=== PATIENT | female | born 1930 | race Caucasian/White ===

== ENCOUNTER → 2019-10-04 | Outpatient (CLI) | payer MEDICARE, OTHER ==
--- NOTE | 2019-10-06 13:04 | Diagnostic Imaging Report ---
INDICATION: Routine screening. COMPARISON: Comparison is made with prior mammograms from 09/09/2018 and 08/25/2017. TECHNIQUE: 2-D and 3-D bilateral screening mammography was performed. The current study was also evaluated with a Computer Aided Detection (CAD) system. 3-D tomosynthesis was also performed and reviewed. FINDINGS: Both breasts remain heterogeneously dense, limiting the sensitivity of mammography. There is a density in the medial aspect of the right breast posterior depth, which appears more irregular on today's study. There was a cyst at this location on study from 2018. The left breast is unremarkable. There are scattered benign calcifications. IMPRESSION: Right breast density in the medial aspect posterior depth appears more irregular on today's study. Additional views and ultrasound are recommended for further evaluation. ACR BI-RADS Category 0: Incomplete. (Needs additional imaging evaluation). Result letter will be mailed to the patient. Note: At least 10% of breast cancer is not imaged by mammography. Dictated by: Dictated on workstation # [id number]
== END ==
LOC: RAD 10:05
PROVIDERS: ATTEND Pediatrics
DX: Z12.31 Encounter for screening mammogram for malignant neoplasm of breast (principal); R92.8 Other abnormal and inconclusive findings on diagnostic imaging of breast
CPT/HCPCS: 77067

== ENCOUNTER → 2019-10-13 | Outpatient (CLI) | payer MEDICARE, OTHER ==
--- NOTE | 2019-10-13 16:26 | Diagnostic Imaging Report ---
INDICATION: Right breast density. COMPARISON: Correlation is made with diagnostic mammogram earlier the same day and screening mammogram from 10/04/2019. FINDINGS: Sonographic interrogation of the inner right breast was performed. At the 2 o'clock location, 8 cm from the nipple, there is an irregular hypoechoic solid-appearing nodule measuring 9 mm x 5 mm x 6 cm. This likely accounts for the density noted mammographically. There is some internal vascularity. No other abnormalities are detected. IMPRESSION: Irregular hypoechoic subcentimeter nodule at the 2 o'clock location of the right breast, 8 cm from the nipple. This is concerning for small breast neoplasm. Tissue sampling is recommended. This would be amenable to ultrasound-guided core biopsy. ACR BI-RADS Category 4: Suspicious abnormality. Result letter will be mailed to the patient. Note: At least 10% of breast cancer is not imaged by mammography. Dictated by: Dictated on workstation # [id number]
--- NOTE | 2019-10-13 18:43 | Diagnostic Imaging Report ---
INDICATION: Right breast density. Patient presents for additional views. Correlation is made with recent screening study from 10/04/2019 and 09/09/2018. Unilateral right 2-D and 3-D diagnostic mammography was performed. This included spot compression CC and ML views as well as conventional 90-degree lateral view. The current study was also evaluated with a Computer Aided Detection (CAD) system. 3-D tomosynthesis was also performed and reviewed. FINDINGS: There is a persistent irregular density in the medial right breast approximately 10 cm from the nipple. This is at the 2-3 o'clock location. No suspicious microcalcifications are seen. IMPRESSION: Irregular density in medial right breast posterior depth approximately 10 cm from the nipple. Further evaluation with ultrasound is recommended and will be performed today. ACR BI-RADS Category 0: Incomplete. (Needs additional imaging evaluation). Result letter will be mailed to the patient. Note: At least 10% of breast cancer is not imaged by mammography. Dictated by: Dictated on workstation # [id number]
== END ==
LOC: RAD 13:11
PROVIDERS: ATTEND Pediatrics
DX: N63.12 Unspecified lump in the right breast, upper inner quadrant (principal); R92.8 Other abnormal and inconclusive findings on diagnostic imaging of breast

== ENCOUNTER → 2019-10-20 | Outpatient (CLI) | payer MEDICARE ==
[~2019-10-20] VITALS: Ht 167.7 cm; Wt 74.1 kg
[~2019-10-20] MED LIST: LIDOCAINE 1% INJ 20 ML 20 ML VIAL INJ ONE
--- NOTE | 2019-10-20 14:07 | Diagnostic Imaging Report ---
INDICATION: Right breast nodule. Patient present for biopsy. Patient brought to the procedure room and placed in the bed in the supine position. Ultrasound imaging of the right breast was performed to evaluate appropriate entry site. The right breast was then prepped and draped in usual sterile fashion. A small amount of 1% lidocaine was utilized for local anesthesia. A total of 5 passes were made into the hypoechoic nodule at the 2 o'clock location of the right breast, 8 cm from the nipple utilizing 14-gauge achieve needle. Core biopsies were obtained. A marker clip was then deployed. Hemostasis was obtained using manual compression. The patient tolerated the procedure well and was sent to mammography for post procedure mammogram. IMPRESSION: Ultrasound-guided core biopsy of the hypoechoic nodule at the 2 o'clock location of the right breast, 8 cm from the nipple. Pathology results are currently pending. Dictated by: Dictated on workstation # [id number]
--- NOTE | 2019-10-20 15:35 | Diagnostic Imaging Report ---
INDICATION: Right breast biopsy with ultrasound. Study is performed post biopsy and clip placement. 2-D CC and MLO mammography was performed postbiopsy. Images demonstrate a clip in the inner aspect of the right breast slightly upper aspect at posterior depth, just posterior to the previously noted spiculated density. IMPRESSION: Clip placement right breast, status post biopsy. Dictated by: Dictated on workstation # [id number]
== END ==
LOC: RAD 12:14
PROVIDERS: ATTEND Pediatrics
DX: C50.411 Malignant neoplasm of upper-outer quadrant of right female breast (principal); Z98.82 Breast implant status; Z98.890 Other specified postprocedural states
CPT/HCPCS: 19083

== ENCOUNTER 2019-11-24 05:38 | Outpatient (CLI) | payer MEDICARE ==
[~2019-11-24] VITALS: Ht 162.6 cm; Wt 75.5 kg
[2019-11-24] MEDS ORDERED: ANAS1TAB7 PO (11:09)
[2019-11-24] MEDS ORDERED: ASPI-586 PO (11:29)
[2019-11-24] MEDS ORDERED: MULT-1021 PO (11:29)
[2019-11-24] MEDS ORDERED: CYAN100088 PO (11:29)
[2019-11-24] MEDS ORDERED: SPIR25TA5 PO (11:29)
== END 2019-11-24 11:37 | disposition home or self-care (01) ==
LOC: PREOP 05:38
PROVIDERS: ATTEND Surgery
DX: Z01.818 Encounter for other preprocedural examination (principal)

== ENCOUNTER 2019-12-09 09:55 | Outpatient (RCR) | payer MEDICARE ==
[~2019-12-09 09:55] MED LIST changes: +ACHD5005 PO; +ANAS1TAB7 PO; +ASPI-586 PO; +CYAN100088 PO; -LIDOCAINE 1% INJ 20 ML 20 ML VIAL INJ ONE; +MULT-1021 PO; +SPIR25TA5 PO
== END 2020-02-02 | disposition home or self-care (01) ==
LOC: ONC 09:55
PROVIDERS: ATTEND Internal Medicine Hematology & Oncology
DX: C50.411 Malignant neoplasm of upper-outer quadrant of right female breast (principal); Z98.82 Breast implant status; Z98.890 Other specified postprocedural states
CPT/HCPCS: 99213; 99214

== ENCOUNTER 2020-03-23 12:49 | Outpatient (RCR) | payer MEDICARE ==
[2020-03-23 13:05] LABS: BASOPHILS % (AUTO) 1 % (0-10); EOSINOPHILS # (AUTO) 0.2 10^3/uL (0.0-0.3); EOSINOPHILS % (AUTO) 6 % (0-10); HEMATOCRIT 33 % (35-52); HEMOGLOBIN 10.6 G/DL (11.5-16.0); LYMPHOCYTES # (AUTO) 0.9 X 10^3 (1.0-4.0); LYMPHOCYTES % (AUTO) 23 % (12-44); MEAN CORPUSCULAR HEMOGLOBIN 30 PG (25-34); MEAN CORPUSCULAR HGB CONC 33 G/DL (32-36); MEAN CORPUSCULAR VOLUME 92 FL (80-99); MEAN PLATELET VOLUME 11.9 FL (7.4-10.4); MONOCYTES % (AUTO) 26 % (0-12); NEUTROPHILS # (AUTO) 1.8 X 10^3 (1.8-7.8); NEUTROPHILS % (AUTO) 45 % (42-75); PLATELET COUNT 158 10^3/uL (130-400); WHITE BLOOD COUNT 4.1 10^3/uL (4.3-11.0)
[2020-03-23 13:30] LABS: ALBUMIN 4.1 GM/DL (3.2-4.5); BILIRUBIN,TOTAL 0.7 MG/DL (0.1-1.0); CALCIUM 8.7 MG/DL (8.5-10.1); CREATININE SERUM 0.89 MG/DL (0.60-1.30); POTASSIUM 3.8 MMOL/L (3.6-5.0); TOTAL PROTEIN 7.1 GM/DL (6.4-8.2)
== END 2020-06-21 | disposition home or self-care (01) ==
LOC: ONC 12:49
PROVIDERS: ATTEND Internal Medicine Hematology & Oncology
DX: C50.211 Malignant neoplasm of upper-inner quadrant of right female breast (principal); D63.0 Anemia in neoplastic disease; D72.819 Decreased white blood cell count, unspecified; E78.5 Hyperlipidemia, unspecified; M19.90 Unspecified osteoarthritis, unspecified site; Z79.899 Other long term (current) drug therapy; Z98.890 Other specified postprocedural states; Z90.49 Acquired absence of other specified parts of digestive tract; Z96.659 Presence of unspecified artificial knee joint; Z90.710 Acquired absence of both cervix and uterus
CPT/HCPCS: 80053; 85025; G0463; 99213

== ENCOUNTER → 2020-12-12 | Outpatient (CLI) | payer MEDICARE ==
[2020-12-12 14:28] LABS: BASOPHILS # (AUTO) 0.1 10^3/uL (0.0-0.1); BASOPHILS % (AUTO) 3 % (0-10); EOSINOPHILS # (AUTO) 0.4 10^3/uL (0.0-0.3); EOSINOPHILS % (AUTO) 9 % (0-10); HEMATOCRIT 33 % (35-52); HEMOGLOBIN 10.5 g/dL (11.5-16.0); LYMPHOCYTES # (AUTO) 0.7 X 10^3 (1.0-4.0); LYMPHOCYTES % (AUTO) 17 % (12-44); MEAN CORPUSCULAR HEMOGLOBIN 30 pg (25-34); MEAN CORPUSCULAR HGB CONC 32 g/dL (32-36); MEAN CORPUSCULAR VOLUME 92 fL (80-99); MEAN PLATELET VOLUME 11.5 fL (9.0-12.2); MONOCYTES # (AUTO) 1.2 X 10^3 (0.0-1.0); MONOCYTES % (AUTO) 31 % (0-12); NEUTROPHILS # (AUTO) 1.6 X 10^3 (1.8-7.8); NEUTROPHILS % (AUTO) 40 % (42-75); PLATELET COUNT 154 10^3/uL (130-400)
[2020-12-12 14:47] LABS: ALBUMIN 4.1 GM/DL (3.2-4.5); BILIRUBIN,TOTAL 0.7 MG/DL (0.1-1.0); CALCIUM 8.6 MG/DL (8.5-10.1); CREATININE SERUM 1.34 MG/DL (0.60-1.30); POTASSIUM 3.9 MMOL/L (3.6-5.0); TOTAL PROTEIN 7.2 GM/DL (6.4-8.2)
== END ==
LOC: ONC 14:01
PROVIDERS: ATTEND Internal Medicine Hematology & Oncology
DX: C50.211 Malignant neoplasm of upper-inner quadrant of right female breast (principal); D63.1 Anemia in chronic kidney disease; N18.9 Chronic kidney disease, unspecified; D72.819 Decreased white blood cell count, unspecified; Z90.11 Acquired absence of right breast and nipple
CPT/HCPCS: 80053; 85025; G0463; 99213

== ENCOUNTER → 2021-06-19 | Outpatient (CLI) | payer MEDICARE ==
[2021-06-19 13:22] LABS: BASOPHILS % (AUTO) 1 % (0-10); EOSINOPHILS # (AUTO) 0.4 10^3/uL (0.0-0.3); EOSINOPHILS % (AUTO) 9 % (0-10); HEMATOCRIT 34 % (35-52); HEMOGLOBIN 10.7 g/dL (11.5-16.0); LYMPHOCYTES # (AUTO) 0.8 10^3/uL (1.0-4.0); LYMPHOCYTES % (AUTO) 19 % (12-44); MEAN CORPUSCULAR HEMOGLOBIN 30 pg (25-34); MEAN CORPUSCULAR HGB CONC 32 g/dL (32-36); MEAN CORPUSCULAR VOLUME 95 fL (80-99); MEAN PLATELET VOLUME 11.7 fL (9.0-12.2); MONOCYTES # (AUTO) 1.2 10^3/uL (0.0-1.0); MONOCYTES % (AUTO) 28 % (0-12); NEUTROPHILS # (AUTO) 1.8 10^3/uL (1.8-7.8); NEUTROPHILS % (AUTO) 43 % (42-75); PLATELET COUNT 154 10^3/uL (130-400); WHITE BLOOD COUNT 4.2 10^3/uL (4.3-11.0)
[2021-06-19 13:45] LABS: ALBUMIN 4.1 GM/DL (3.2-4.5); BILIRUBIN,TOTAL 0.8 MG/DL (0.1-1.0); CALCIUM 9.3 MG/DL (8.5-10.1); CREATININE SERUM 1.08 MG/DL (0.60-1.30); POTASSIUM 3.9 MMOL/L (3.6-5.0); TOTAL PROTEIN 7.1 GM/DL (6.4-8.2)
== END ==
LOC: ONC 13:10
PROVIDERS: ATTEND Internal Medicine Hematology & Oncology
DX: C50.211 Malignant neoplasm of upper-inner quadrant of right female breast (principal); D72.819 Decreased white blood cell count, unspecified; D64.89 Other specified anemias; Z90.11 Acquired absence of right breast and nipple
CPT/HCPCS: 80053; 85025; G0463; 99213

== ENCOUNTER → 2021-12-24 | Outpatient (CLI) | payer MEDICARE ==
[2021-12-24 11:01] LABS: BASOPHILS % (AUTO) 1 % (0-10); EOSINOPHILS # (AUTO) 0.4 10^3/uL (0.0-0.3); EOSINOPHILS % (AUTO) 7 % (0-10); HEMATOCRIT 32 % (35-52); HEMOGLOBIN 10.2 g/dL (11.5-16.0); LYMPHOCYTES # (AUTO) 0.8 10^3/uL (1.0-4.0); LYMPHOCYTES % (AUTO) 14 % (12-44); MEAN CORPUSCULAR HEMOGLOBIN 30 pg (25-34); MEAN CORPUSCULAR HGB CONC 32 g/dL (32-36); MEAN CORPUSCULAR VOLUME 94 fL (80-99); MEAN PLATELET VOLUME 12.4 fL (9.0-12.2); MONOCYTES # (AUTO) 1.6 10^3/uL (0.0-1.0); MONOCYTES % (AUTO) 27 % (0-12); NEUTROPHILS # (AUTO) 3.1 10^3/uL (1.8-7.8); NEUTROPHILS % (AUTO) 51 % (42-75); PLATELET COUNT 170 10^3/uL (130-400)
[2021-12-24 11:18] LABS: BILIRUBIN,TOTAL 0.6 MG/DL (0.1-1.0); CALCIUM 8.8 MG/DL (8.5-10.1); TOTAL PROTEIN 7.2 GM/DL (6.4-8.2)
== END ==
LOC: EDSTATUS 06-22 08:01 → ONC 10:40
PROVIDERS: ATTEND Internal Medicine Hematology & Oncology
DX: C50.211 Malignant neoplasm of upper-inner quadrant of right female breast (principal); D72.819 Decreased white blood cell count, unspecified; D63.8 Anemia in other chronic diseases classified elsewhere
CPT/HCPCS: 80053; 85025; G0463; 99213